=== PATIENT | female | born 1970 | race African-American/Black ===

== ENCOUNTER 2017-02-05 22:24 | Emergency (ER) | payer OTHER ==
[~2017-02-05] VITALS: Ht 167.6 cm; Wt 96.9 kg
[~2017-02-05 22:24] MED LIST: APRESOLINE50 M1 G-TUBE; BACTRIM,SEPT1 TABLE1 PO; CLOPIDOGREL75 MG PO; COPAXONE20 MG/KIT PO; COZAAR25 MG PO; EFFEXOR25 MG PO; INDERIDE 40/1 TABLET PO; LOSARTAN POTAS100 MG NG; NITROFURANTOIN50 M1 PO; SANCTURA XR60 MG PO; TRIBENZOR 40-51 EAC4 PO; TYSABRI300 MG/15 IV; VENLAFAXINE HC150 M1 PO; VENLAFAXINE HCL75 M2 NG; VENLAFAXINE HCL75 M3 PO; VESICARE5 MG PO; VITAMIN D31000 UNI2 PO; ZESTRIL,PRINIV2.5 MG PO
[2017-02-05] MEDS ORDERED: FIORICET 50-301 EAC1 PO (23:30)
[2017-02-06 00:22] VITALS: BP 124/88
== END 2017-02-06 00:24 | disposition home or self-care (01) ==
LOC: EME 22:24
DX: S06.0X0A Concussion without loss of consciousness, initial encounter (principal); V49.40XA Driver injured in collision with unspecified motor vehicles in traffic accident, initial encounter; Y92.410 Unspecified street and highway as the place of occurrence of the external cause; R51 Headache; G35 Multiple sclerosis; I10 Essential (primary) hypertension; F41.9 Anxiety disorder, unspecified; F32.9 Major depressive disorder, single episode, unspecified
CPT/HCPCS: 70450; 99281; 99284

== ENCOUNTER 2017-04-13 12:10 | Inpatient (IN) | payer OTHER ==
[~2017-04-13] VITALS: Ht 170.2 cm; Wt 95.1 kg
[~2017-04-13 12:10] MED LIST changes: +FIORICET 50-301 EAC1 PO
[2017-04-13 14:20] VITALS: BP 127/89
[2017-04-13 16:29] VITALS: BP 134/88
[2017-04-13 16:58] LABS: HEMATOCRIT 31.2 % (36.0-46.0); HEMOGLOBIN 10.4 G/DL (11.9-15.5); MCH 29.1 PG (29.0-34.0); MCHC 33.3 G/DL (30.0-36.0); MCV 87.2 FL (83-99); NRBC (%) 2.2 /100 WBC (0-0); PLATELET COUNT 267 K/uL (156-360); RBC DIS.WIDTH-CV 15.1 % (11.8-14.6); RBC DIS.WIDTH-SD 47.8 % (39-53); RED BLOOD COUNT 3.58 M/uL (3.80-5.20)
[2017-04-13 17:13] LABS: ALBUMIN 3.8 g/dL (3.2-4.8); CHLORIDE 99 mEq/L (99-109); POTASSIUM 3.8 mEq/L (3.7-5.4); SODIUM 134 mEq/L (136-147)
[2017-04-13 17:15] LABS: GLUCOSE 105 mg/dL (70-99)
[2017-04-13 17:16] LABS: TOTAL PROTEIN 6.8 g/dL (6.4-8.3)
[2017-04-13 17:17] LABS: TOTAL BILIRUBIN 0.2 mg/dL (0.0-1.0)
[2017-04-13 17:19] LABS: ALKALINE PHOSPHATASE 46 IU/L (3-129); CREATININE 0.8 mg/dL (0.6-1.3); GFR ESTIMATE (CALCULATED) > 59 mL/min/
[2017-04-13 17:20] LABS: UREA NITROGEN (BUN) 22 mg/dL (9-23)
[2017-04-13 17:21] LABS: AST (GOT) 15 IU/L (2-34)
[2017-04-13 17:22] LABS: ALT (GPT) 25 IU/L (3-49)
[2017-04-13 20:31] VITALS: BP 119/83
[2017-04-14 05:34] VITALS: BP 134/89
[2017-04-14 15:17] VITALS: BP 136/83
[2017-04-15 06:06] VITALS: BP 132/86
[2017-04-15 13:08] LABS: APPEARANCE CLEAR ((CLEAR)); BILIRUBIN NEGATIVE; BLOOD NEGATIVE; COLOR YELLOW ((YELLOW)); GLUCOSE (STRIP) NEGATIVE; KETONES NEGATIVE; LEUKOCYTES NEGATIVE; NITRITE NEGATIVE; PROTEIN (STRIP) NEGATIVE; SPECIFIC GRAVITY 1.018 (1.000-1.030); UROBILINOGEN 0.2 MG/DL (0.2-1.0)
[2017-04-15 15:44] VITALS: BP 122/81
[2017-04-16 05:02] VITALS: BP 134/88
[2017-04-16 06:01] LABS: BASOPHIL (%) 0.5 % (0-1); BASOPHIL COUNT 0.1 K/uL (0-0.1); EOSINOPHIL (%) 1.9 % (0-5); EOSINOPHIL COUNT 0.2 K/uL (0-0.3); HEMATOCRIT 28.6 % (36.0-46.0); HEMOGLOBIN 9.3 G/DL (11.9-15.5); IMMATURE GRANULOCYTE (%) 4.9 % (0.0-0.7); LYMPHOCYTE (%) 42.8 % (15-42); LYMPHOCYTE COUNT 5.3 K/uL (1.0-2.8); MCH 28.5 PG (29.0-34.0); MCHC 32.5 G/DL (30.0-36.0); MCV 87.7 FL (83-99); MONOCYTE (%) 8.3 % (3-12); NEUTROPHIL (%) 41.6 % (45-76); NEUTROPHIL COUNT 5.1 K/uL (1.8-6.4); NRBC (%) 2.2 /100 WBC (0-0); PLATELET COUNT 234 K/uL (156-360); RBC DIS.WIDTH-CV 15.2 % (11.8-14.6); RBC DIS.WIDTH-SD 48.2 % (39-53); RED BLOOD COUNT 3.26 M/uL (3.80-5.20); WHITE BLOOD COUNT 12.3 K/uL (4.1-10.2)
[2017-04-16 15:00] VITALS: BP 127/81
[2017-04-17 04:05] VITALS: BP 125/84
[2017-04-17 14:59] VITALS: BP 133/86
[2017-04-18 05:59] VITALS: BP 133/88
[2017-04-18 21:45] VITALS: BP 138/82
[2017-04-19 05:37] VITALS: BP 123/86
[2017-04-19 06:42] LABS: BASOPHIL (%) 0.4 % (0-1); EOSINOPHIL (%) 2.1 % (0-5); EOSINOPHIL COUNT 0.2 K/uL (0-0.3); HEMATOCRIT 27.9 % (36.0-46.0); IMMATURE GRANULOCYTE (%) 1.8 % (0.0-0.7); LYMPHOCYTE (%) 45.5 % (15-42); LYMPHOCYTE COUNT 4.5 K/uL (1.0-2.8); MCH 28.3 PG (29.0-34.0); MCHC 32.3 G/DL (30.0-36.0); MCV 87.7 FL (83-99); MONOCYTE (%) 9.9 % (3-12); NEUTROPHIL (%) 40.3 % (45-76); NRBC (%) 1.3 /100 WBC (0-0); PLATELET COUNT 216 K/uL (156-360); RBC DIS.WIDTH-CV 15.2 % (11.8-14.6); RBC DIS.WIDTH-SD 48.1 % (39-53); RED BLOOD COUNT 3.18 M/uL (3.80-5.20); WHITE BLOOD COUNT 9.9 K/uL (4.1-10.2)
[2017-04-19 09:06] VITALS: BP 116/79
[2017-04-19 15:35] VITALS: BP 126/94
[2017-04-20 06:12] LABS: CHLORIDE 102 MEQ/L (99-109); CREATININE 0.8 MG/DL (0.6-1.3); GFR ESTIMATE (CALCULATED) > 59 mL/min/; GLUCOSE 90 mg/dL (70-99); POTASSIUM 3.9 MEQ/L (3.7-5.4); SODIUM 138 MEQ/L (136-147); UREA NITROGEN (BUN) 18 mg/dL (9-23)
[2017-04-20 06:35] VITALS: BP 128/84
[2017-04-20 19:19] VITALS: BP 133/89
[2017-04-20 20:16] LABS: C DIFF TOXIN NEGATIVE (NEGATIVE)
[2017-04-21 07:00] VITALS: BP 124/87
[2017-04-21 17:11] VITALS: BP 139/88
[2017-04-22] VITALS: BP 130/86
[2017-04-22 07:08] VITALS: BP 125/88
[2017-04-22 15:35] VITALS: BP 151/95
[2017-04-23 04:48] VITALS: BP 133/83
[2017-04-23 15:17] VITALS: BP 125/85
[2017-04-24 06:13] VITALS: BP 133/67
[2017-04-24 14:56] VITALS: BP 124/83
[2017-04-25 05:08] VITALS: BP 132/86
[2017-04-25 15:35] VITALS: BP 137/83
[2017-04-26 05:15] LABS: HEMATOCRIT 27.4 % (36.0-46.0); HEMOGLOBIN 8.9 G/DL (11.9-15.5); MCH 29.1 PG (29.0-34.0); MCHC 32.5 G/DL (30.0-36.0); MCV 89.5 FL (83-99); PLATELET COUNT 189 K/uL (156-360); RBC DIS.WIDTH-CV 15.8 % (11.8-14.6); RED BLOOD COUNT 3.06 M/uL (3.80-5.20); WHITE BLOOD COUNT 6.8 K/uL (4.1-10.2)
[2017-04-26 05:46] LABS: ALBUMIN 3.5 G/DL (3.2-4.8); ALKALINE PHOSPHATASE 50 IU/L (3-129); ALT (GPT) 15 IU/L (3-49); AST (GOT) 12 IU/L (2-34); CHLORIDE 108 MEQ/L (99-109); CREATININE 0.7 MG/DL (0.6-1.3); GFR ESTIMATE (CALCULATED) > 59 mL/min/; GLUCOSE 94 mg/dL (70-99); SODIUM 142 MEQ/L (136-147); TOTAL BILIRUBIN 0.2 MG/DL (0.0-1.0); TOTAL PROTEIN 6.3 G/DL (6.4-8.3); UREA NITROGEN (BUN) 13 mg/dL (9-23)
[2017-04-26 06:45] VITALS: BP 130/80
[2017-04-26] MEDS ORDERED: VENLAFAXINE HC150 M1 PO (12:08)
[2017-04-26] MEDS ORDERED: CLONAZEPAM0.5 MG PO (12:08)
[2017-04-26] MEDS ORDERED: GABAPENTIN100 MG PO (12:08)
[2017-04-26] MEDS ORDERED: LOSARTAN POTASS25 MG PO (12:08)
[2017-04-26] MEDS ORDERED: ACETAMINOPHEN-1 EAC1 PO (12:08)
[2017-04-26] MEDS ORDERED: BALANCE B-501 EAC1 PO (12:08)
[2017-04-26 15:45] VITALS: BP 129/88
[2017-04-27 05:42] VITALS: BP 130/94
== END 2017-04-27 14:16 | DRG 93 ==
LOC: 3WEST 12:10 → ENPENDDIS 04-27 → 3WEST 04-27 14:16
PROVIDERS: Family Medicine Sports Medicine; Physical Medicine & Rehabilitation Pain Medicine; Psychiatry & Neurology Neurology
PROC: F07M0ZZ Range of Motion and Joint Mobility Treatment of Musculoskeletal System - Whole Body (ICD-10-PCS; principal; 2017-04-13)
DX: R26.89 Other abnormalities of gait and mobility (principal); D36.10 Benign neoplasm of peripheral nerves and autonomic nervous system, unspecified; D64.9 Anemia, unspecified; D33.3 Benign neoplasm of cranial nerves; F32.9 Major depressive disorder, single episode, unspecified; R53.83 Other fatigue; G35 Multiple sclerosis; H91.91 Unspecified hearing loss, right ear; I87.2 Venous insufficiency (chronic) (peripheral); Z79.899 Other long term (current) drug therapy; R53.1 Weakness; R30.0 Dysuria; I10 Essential (primary) hypertension; F41.1 Generalized anxiety disorder; D72.829 Elevated white blood cell count, unspecified; R27.0 Ataxia, unspecified; R51 Headache
CPT/HCPCS: 80048; 80053; 81003; 85025; 85027; 87493; 92523 GN; 97530 GP; G0515 GN; J1644; J3420